=== PATIENT | male | born 1990 | race Hispanic/Latino ===

== ENCOUNTER 2017-08-13 19:08 | Emergency (ER) | payer SELFPAY ==
--- NOTE | 2017-08-13 23:50 | ULT ---
ULTRASOUND RIGHT LOWER EXTREMITY VENOUS DOPPLER 08/13/17 HISTORY: Lower extremity pain, swelling and edema. COMPARISON: None. TECHNIQUE: Real time walker scale color doppler and spectral analysis right lower extremity venous system was per formed with the linear transducer. The common femoral, femoral, proximal portion of the greater saphe nous and deep femoral vein as well as the popliteal and posterior tibial veins are interrogated. Normal flow, augmentation and compression. Mild edema. IMPRESSION: No deep venous thrombosis. POS: JENIFER
== END 2017-08-14 00:29 | disposition home or self-care (01) ==
LOC: ERS 19:08
DX: L03.115 Cellulitis of right lower limb (principal)
CPT/HCPCS: 36416

== ENCOUNTER 2017-08-16 15:16 | Emergency (ER) | payer SELFPAY ==
[2017-08-16 17:24] LABS: #Basophils 0.1 thou/uL (0.0-0.2); #Eosinphils 0.2 thou/uL (0.0-0.7); #Lymphocytes 2.3 thou/uL (1.20-3.40); #Monocytes 0.7 thou/uL (0.11-0.59); #Neutrophils 6.5 thou/uL (1.40-6.50); %Basophils 0.5 % (0.0-1.0); %Eosinophils 1.8 % (0.0-10.0); %Lymphocytes 23.4 % (21.0-51.0); %Monocytes 7.5 % (0.0-10.0); %Neutrophils 66.8 % (42.0-75.0); Mean Corpuscular Hemoglobin 31.9 pg (27.0-31.0); Mean Corpuscular Volume 99.6 fl (80.0-94.0); Mean Platelet Volume 8.3 fL (7.4-10.4); Platelet Count 250 thou/uL (130-400); RBC Distribution Width 11.8 % (11.5-14.5); Red Blood Cell (RBC) Count 4.68 mill/uL (4.70-6.10); White Blood Cell (WBC) Count 9.8 thou/uL (4.8-10.8)
[2017-08-16 17:48] LABS: ALT (SGPT) 63 U/L (8-55); AST (SGOT) 29 U/L (5-34); Albumin 4.3 g/dL (3.5-5.0); Alkaline Phosphatase 96 U/L (40-150); Anion Gap 17 mmol/L (10-20); BUN (Urea Nitrogen) 11 mg/dL (8.9-20.6); Bilirubin, Total 0.2 mg/dL (0.2-1.2); Calc. Creatinine Clearance 0 mL/min (70-130); Calcium 9.5 mg/dL (7.8-10.44); Carbon Dioxide 20 mmol/L (22-29); Chloride 107 mmol/L (98-107); Estimated GFR-MDRD Greater than 90; Globulin 3.3 g/dL (2.4-3.5); Glucose 112 mg/dL (70-105); Potassium 3.8 mmol/L (3.5-5.1); Protein, Total 7.6 g/dL (6.0-8.3); Sodium 140 mmol/L (136-145)
--- NOTE | 2017-08-16 18:52 | RAD ---
RIGHT ANKLE THREE VIEWS: 08/16/17 HISTORY: Right ankle and foot pain. FINDINGS/IMPRESSION: The ankle mortise is maintained. No fracture, dislocation or bony destruction is identified. POS: CHRIS
--- NOTE | 2017-08-16 21:41 | ULT ---
VENOUS DOPPLER ULTRASOUND RIGHT LOWER EXTREMITY: 08/16/17 HISTORY: Right lower extremity edema. TECHNIQUE: Reinoso scale ultrasound with color flow and spectral doppler imaging of the deep venous system of the r ight lower extremity is performed. FINDINGS: There is good flow, compression and augmentation noted in the right common femoral, femoral, deep fem oral, popliteal, posterior tibial, and greater saphenous veins. IMPRESSION: No evidence of DVT in the right lower extremity. POS: CHRIS
== END 2017-08-16 22:06 | disposition home or self-care (01) ==
LOC: ERS 15:16
DX: M79.89 Other specified soft tissue disorders (principal)
CPT/HCPCS: 36415; 80053; 85025

== ENCOUNTER 2020-10-30 21:03 | Emergency (ER) | payer SELFPAY | END 2020-10-31 00:24 | disposition home or self-care (01) | LOC: ERS 21:03 | DX: S61.412A Laceration without foreign body of left hand, initial encounter (principal); W45.8XXA Other foreign body or object entering through skin, initial encounter | CPT/HCPCS: 12001 ==